=== PATIENT | male | born 1960 | race Caucasian/White ===

== ENCOUNTER → 2017-04-12 | Outpatient (CLI) | payer MEDICAID ==
[~2017-04-12] MED LIST: ALBU18HF INH; BUPR150T73 PO; CHOL500014 PO; GLYB2.5T2 PO; LISI-170 PO; NAPR220T29 PO; SERT100T PO; SIMV20TA3 PO; TRAZ100T15 PO
== END | disposition home or self-care (01) ==
LOC: RAD 16:16 → EDSTATUS 16:30
PROVIDERS: ATTEND Nurse Practitioner
DX: I51.7 Cardiomegaly (principal); J18.0 Bronchopneumonia, unspecified organism; J44.9 Chronic obstructive pulmonary disease, unspecified; K44.9 Diaphragmatic hernia without obstruction or gangrene; K80.20 Calculus of gallbladder without cholecystitis without obstruction
CPT/HCPCS: 71250

== ENCOUNTER 2018-04-07 09:13 | Inpatient (IN) | payer MEDICAID ==
[~2018-04-07] VITALS: Ht 188 cm; Wt 99.9 kg
[~2018-04-07 09:13] MED LIST changes: -CHOL500014 PO; +CHOL500045 PO; +NAPR-816 PO; -NAPR220T29 PO
[2018-04-07 10:28] LABS: BASOPHILS % (AUTO) 0 % (0-1); EOSINOPHILS # (AUTO) 0.14 x10^3/uL (0-0.4); EOSINOPHILS % (AUTO) 2 % (1-7); LYMPHOCYTES # (AUTO) 1.51 x10^3/uL (1-3.4); LYMPHOCYTES % (AUTO) 18 % (22-44); MD NO; MEAN CORPUSCULAR HEMOGLOBIN 30.4 pg (27.5-34.5); MEAN CORPUSCULAR HGB CONC 33.9 g/dL (33.2-36.2); MEAN CORPUSCULAR VOLUME 89.5 fL (81-97); MONOCYTES # (AUTO) 0.67 x10^3/uL (0.2-0.8); MONOCYTES % (AUTO) 8 % (2-9); NEUTROPHILS % (AUTO) 72 % (42-75); PLATELET COUNT 225 x10^3/uL (130-400); RED BLOOD COUNT 4.38 x10^6/uL (4.38-5.82); RED CELL DISTRIBUTION WIDTH 15.1 % (9.4-14.8)
[2018-04-07 10:29] LABS: HCT (SEDRATE) 39.2 % (39.2-51.8)
[2018-04-07] MEDS ORDERED: SODIUM CHLORIDE FLUSH 10ML SYR IVF ONE (10:30)
[2018-04-07] MEDS ORDERED: AMPICILLIN/SULBACTAM 3 GM in SODIUM CHLORIDE 0.9% 100 ML IVPB ONE (10:30)
[2018-04-07] MEDS ORDERED: VANCOMYCIN 2,000 MG in SODIUM CHLORIDE 0.9% 500 ML IV ONE (10:30)
[2018-04-07] MEDS ORDERED: VANCOMYCIN PER PHARMACY MC ONE (10:30)
[2018-04-07 10:41] LABS: ALANINE AMINOTRANSFERASE 21 U/L (12-78); ALBUMIN 2.7 g/dL (3.4-5.0); ANION GAP 10 mmol/L (5-15); CALCIUM 8.2 mg/dL (8.5-10.1); CHLORIDE 104 mmol/L (98-107); CREATININE 0.98 mg/dL (0.7-1.3)
[2018-04-07 10:43] LABS: ALKALINE PHOSPHATASE 85 U/L (45-117); BILIRUBIN,TOTAL 0.4 mg/dL (0.2-1.0); TOTAL PROTEIN 6.9 g/dL (6.4-8.2)
[2018-04-07] MEDS ORDERED: METFORMIN PO (10:49)
[2018-04-07] MEDS ORDERED: hydrALAzine 20 MG/ML, 1ML IVPush PRN (13:30)
[2018-04-07] MEDS ORDERED: POLYETHYLENE GLYCOL 17 GM PACKET PO PRN (13:30)
[2018-04-07] MEDS ORDERED: ACETAMINOPHEN 325 MG TABLET PO PRN (13:30)
[2018-04-07] MEDS ORDERED: DEXTROSE 4 GM TAB.CHEW PO PRN (13:30)
[2018-04-07] MEDS ORDERED: VANCOMYCIN PER PHARMACY MC PRN (13:30)
[2018-04-07] MEDS ORDERED: DEXTROSE 50%, 50ML SYRINGE IVPush PRN (13:30)
[2018-04-07] MEDS ORDERED: GLUCAGON 1 MG IM PRN (13:30)
[2018-04-07] MEDS: SODIUM CHLORIDE 0.9% 1,000 ML IV SCH ×2 (13:54→20:10)
[2018-04-07] MEDS ORDERED: PHARMACOKINETIC CONSULTATION MC ONE (14:00)
[2018-04-07] MEDS ORDERED: AMPICILLIN/SULBACTAM 3 GM in SODIUM CHLORIDE 0.9% 100 ML IV SCH (14:00)
[2018-04-07] MEDS ORDERED: PHARMACOKINETIC MONITORING MC PRN (14:00)
[2018-04-07 14:07] VITALS: BP 115/69
[2018-04-07 14:07] LABS: INTERNATIONAL NORMALIZED RATIO 0.9 (0.93-1.1); PROTHROMBIN TIME 9.4 Seconds (9.6-11.5)
[2018-04-07] MEDS: INSULIN LISPRO 100 UNITS/ML, PEN SQ-INSULIN SCH ×2 (16:00→20:10)
[2018-04-07] MEDS: HEPARIN 5,000 UNITS/ML, 1ML SQ SCH (16:24)
[2018-04-07] MEDS: PIPERACILLIN/TAZO/PMX 3.375GM 50 ML IV SCH (16:34)
[2018-04-07 16:56] LABS: MICROSCOPIC NOT IND
[2018-04-07 16:58] LABS: CULTURE INDICATED? NO
[2018-04-07 17:08] LABS: AMPHETAMINE SCREEN, URINE Negative (Negative); BARBITURATE SCREEN, URINE Negative (Negative); BENZODIAZEPINE SCREEN, URINE Negative (Negative); CANNABINOID SCREEN, URINE Negative (Negative); COCAINE SCREEN, URINE Negative (Negative); METHADONE SCREEN, URINE Negative (Negative); OPIATE SCREEN, URINE Negative (Negative)
[2018-04-07] MEDS: ATORVASTATIN 40 MG TABLET PO SCH (20:09)
[2018-04-07] MEDS: SODIUM CHLORIDE FLUSH 10ML SYR IVF SCH (20:10)
[2018-04-07 20:23] VITALS: BP 134/84
[2018-04-08] MEDS: PIPERACILLIN/TAZO/PMX 3.375GM 50 ML IV SCH ×3 (00:11→17:27)
[2018-04-08] MEDS: HEPARIN 5,000 UNITS/ML, 1ML SQ SCH ×3 (00:20→17:27)
[2018-04-08 00:36] VITALS: BP 119/69
[2018-04-08] MEDS: SODIUM CHLORIDE 0.9% 1,000 ML IV SCH ×4 (02:59→23:15)
[2018-04-08] MEDS: VANCOMYCIN 2,000 MG in SODIUM CHLORIDE 0.9% 500 ML IV SCH ×2 (04:49→23:11)
[2018-04-08 05:20] LABS: BASOPHILS # (AUTO) 0.03 x10^3/uL (0-0.1); BASOPHILS % (AUTO) 0 % (0-1); EOSINOPHILS % (AUTO) 3 % (1-7); LYMPHOCYTES # (AUTO) 2.02 x10^3/uL (1-3.4); LYMPHOCYTES % (AUTO) 32 % (22-44); MD NO; MEAN CORPUSCULAR HEMOGLOBIN 30.5 pg (27.5-34.5); MEAN CORPUSCULAR HGB CONC 33.8 g/dL (33.2-36.2); MEAN CORPUSCULAR VOLUME 90.3 fL (81-97); MEAN PLATELET VOLUME 8.8 fL (7.4-10.4); MONOCYTES # (AUTO) 0.56 x10^3/uL (0.2-0.8); MONOCYTES % (AUTO) 9 % (2-9); NEUTROPHILS # (AUTO) 3.47 x10^3/uL (1.8-6.8); NEUTROPHILS % (AUTO) 55 % (42-75); PLATELET COUNT 237 x10^3/uL (130-400); RED BLOOD COUNT 4.31 x10^6/uL (4.38-5.82); RED CELL DISTRIBUTION WIDTH 14.8 % (9.4-14.8)
[2018-04-08 05:25] LABS: ANION GAP 6 mmol/L (5-15); CALCIUM 8.9 mg/dL (8.5-10.1); CHLORIDE 109 mmol/L (98-107); CREATININE 0.74 mg/dL (0.7-1.3)
[2018-04-08 06:30] VITALS: BP 125/76
[2018-04-08] MEDS: LISINOPRIL 20 MG TABLET PO SCH (08:58)
[2018-04-08] MEDS: INSULIN LISPRO 100 UNITS/ML, PEN SQ-INSULIN SCH ×4 (08:59→21:00)
[2018-04-08] MEDS: INSULIN GLARGINE 100 UNITS/ML, PEN SQ-INSULIN SCH ×2 (08:59→21:26)
[2018-04-08] MEDS: SODIUM CHLORIDE FLUSH 10ML SYR IVF SCH ×2 (08:59→21:26)
[2018-04-08 13:19] VITALS: BP 106/67
[2018-04-08 19:20] VITALS: BP 106/63
[2018-04-08] MEDS: ATORVASTATIN 40 MG TABLET PO SCH (21:26)
[2018-04-09] MEDS: HEPARIN 5,000 UNITS/ML, 1ML SQ SCH ×3 (00:24→16:00)
[2018-04-09 01:12] VITALS: BP 117/75
[2018-04-09] MEDS: PIPERACILLIN/TAZO/PMX 3.375GM 50 ML IV SCH ×2 (01:21→08:40)
[2018-04-09 04:56] LABS: ANION GAP 5 mmol/L (5-15); CALCIUM 8.6 mg/dL (8.5-10.1); CHLORIDE 110 mmol/L (98-107)
[2018-04-09 05:06] LABS: CREATININE 0.77 mg/dL (0.7-1.3)
[2018-04-09 05:11] LABS: BASOPHILS # (AUTO) 0.05 x10^3/uL (0-0.1); BASOPHILS % (AUTO) 1 % (0-1); EOSINOPHILS % (AUTO) 2 % (1-7); LYMPHOCYTES # (AUTO) 2.44 x10^3/uL (1-3.4); LYMPHOCYTES % (AUTO) 30 % (22-44); MD NO; MEAN CORPUSCULAR HEMOGLOBIN 29.7 pg (27.5-34.5); MEAN CORPUSCULAR HGB CONC 33.2 g/dL (33.2-36.2); MEAN CORPUSCULAR VOLUME 89.4 fL (81-97); MEAN PLATELET VOLUME 8.5 fL (7.4-10.4); MONOCYTES # (AUTO) 0.68 x10^3/uL (0.2-0.8); MONOCYTES % (AUTO) 8 % (2-9); NEUTROPHILS # (AUTO) 4.78 x10^3/uL (1.8-6.8); NEUTROPHILS % (AUTO) 59 % (42-75); PLATELET COUNT 247 x10^3/uL (130-400); RED BLOOD COUNT 4.38 x10^6/uL (4.38-5.82); RED CELL DISTRIBUTION WIDTH 14.6 % (9.4-14.8)
[2018-04-09] MEDS ORDERED: POTASSIUM CHLORIDE 20 MEQ TAB.ER.PRT PO ONE (05:30)
[2018-04-09 05:51] LABS: HCT (SEDRATE) 39.2 % (39.2-51.8)
[2018-04-09 06:45] VITALS: BP 119/76
[2018-04-09] MEDS: LISINOPRIL 20 MG TABLET PO SCH (08:40)
[2018-04-09] MEDS: INSULIN LISPRO 100 UNITS/ML, PEN SQ-INSULIN SCH ×4 (08:41→20:25)
[2018-04-09] MEDS: SODIUM CHLORIDE FLUSH 10ML SYR IVF SCH ×2 (08:41→20:42)
[2018-04-09] MEDS: INSULIN GLARGINE 100 UNITS/ML, PEN SQ-INSULIN SCH ×2 (08:41→20:25)
[2018-04-09 12:55] VITALS: BP 123/70
[2018-04-09] MEDS: CLINDAMYCIN PMX 600MG/50ML 50 ML IV SCH (15:25)
[2018-04-09] MEDS: SODIUM CHLORIDE 0.9% 1,000 ML IV SCH (15:26)
[2018-04-09] MEDS: VANCOMYCIN 2,000 MG in SODIUM CHLORIDE 0.9% 500 ML IV SCH (17:23)
[2018-04-09 19:42] VITALS: BP 97/70
[2018-04-09] MEDS: ATORVASTATIN 40 MG TABLET PO SCH (20:24)
[2018-04-10] MEDS: CLINDAMYCIN PMX 600MG/50ML 50 ML IV SCH ×2 (00:01→07:53)
[2018-04-10] MEDS: SODIUM CHLORIDE 0.9% 1,000 ML IV SCH (00:01)
[2018-04-10] MEDS: HEPARIN 5,000 UNITS/ML, 1ML SQ SCH ×2 (00:01→07:53)
[2018-04-10 01:38] VITALS: BP 111/63
[2018-04-10 05:03] LABS: BASOPHILS # (AUTO) 0.04 x10^3/uL (0-0.1); BASOPHILS % (AUTO) 1 % (0-1); EOSINOPHILS # (AUTO) 0.18 x10^3/uL (0-0.4); EOSINOPHILS % (AUTO) 2 % (1-7); LYMPHOCYTES # (AUTO) 1.94 x10^3/uL (1-3.4); LYMPHOCYTES % (AUTO) 25 % (22-44); MD NO; MEAN CORPUSCULAR HEMOGLOBIN 29.8 pg (27.5-34.5); MEAN CORPUSCULAR HGB CONC 33.3 g/dL (33.2-36.2); MEAN CORPUSCULAR VOLUME 89.6 fL (81-97); MEAN PLATELET VOLUME 8.4 fL (7.4-10.4); MONOCYTES # (AUTO) 0.47 x10^3/uL (0.2-0.8); MONOCYTES % (AUTO) 6 % (2-9); NEUTROPHILS # (AUTO) 5.22 x10^3/uL (1.8-6.8); NEUTROPHILS % (AUTO) 67 % (42-75); PLATELET COUNT 263 x10^3/uL (130-400); RED BLOOD COUNT 4.76 x10^6/uL (4.38-5.82)
[2018-04-10 05:16] LABS: CHLORIDE 107 mmol/L (98-107)
[2018-04-10 05:20] LABS: ALBUMIN 2.7 g/dL (3.4-5.0); ANION GAP 6 mmol/L (5-15); CALCIUM 9.2 mg/dL (8.5-10.1)
[2018-04-10 07:47] VITALS: BP 139/84
[2018-04-10] MEDS: LISINOPRIL 20 MG TABLET PO SCH (07:54)
[2018-04-10] MEDS: INSULIN LISPRO 100 UNITS/ML, PEN SQ-INSULIN SCH ×2 (07:54→11:40)
[2018-04-10] MEDS: SODIUM CHLORIDE FLUSH 10ML SYR IVF SCH (07:55)
[2018-04-10] MEDS: INSULIN GLARGINE 100 UNITS/ML, PEN SQ-INSULIN SCH (07:55)
[2018-04-10] MEDS ORDERED: CLINDAMYCIN 300 MG CAPSULE PO SCH (10:00)
[2018-04-10] MEDS ORDERED: CLIN300C8 PO (12:07)
[2018-04-10 13:18] VITALS: BP 112/70
== END 2018-04-10 15:26 | disposition home or self-care (01) | DRG 602 ==
LOC: ED 10:41 → EDIP 10:42 → ED 10:57 → 3NE 12:12 → DCLOUNGE 04-10 15:21
PROVIDERS: ADMIT Hospitalist; ATTEND Internal Medicine
DX: L03.116 Cellulitis of left lower limb (principal); E43 Unspecified severe protein-calorie malnutrition; E11.65 Type 2 diabetes mellitus with hyperglycemia; D64.9 Anemia, unspecified; E78.5 Hyperlipidemia, unspecified; F12.90 Cannabis use, unspecified, uncomplicated; F17.210 Nicotine dependence, cigarettes, uncomplicated; I10 Essential (primary) hypertension; J44.9 Chronic obstructive pulmonary disease, unspecified; Z59.0 Homelessness; Z66 Do not resuscitate; Z82.49 Family history of ischemic heart disease and other diseases of the circulatory system; Z89.421 Acquired absence of other right toe(s); M79.89 Other specified soft tissue disorders; Z68.28 Body mass index [BMI] 28.0-28.9, adult
CPT/HCPCS: 36415; 80048; 80053; 80307; 81003; 82040; 82947; 82962; 83036; 85025; 85610; 85651; 86140; 87040; 87081; 96365; 99285; J0295; J1644; J2543; J3370; J1815; J7030; J7040

== ENCOUNTER 2020-11-18 23:57 | Emergency (ER) | payer MEDICAID ==
[~2020-11-18] VITALS: Ht 188 cm; Wt 103.6 kg
[~2020-11-18 23:57] MED LIST changes: +CLIN300C9 PO; +METFORMIN PO; +SIMV20TA19 PO; -SIMV20TA3 PO; +TRAZ-175 PO; -TRAZ100T15 PO
[2020-11-19 00:53] LABS: PH, VENOUS 7.356 pH (7.320-7.420)
[2020-11-19 00:54] LABS: BASOPHILS % (AUTO) 1 % (0-1); EOSINOPHILS % (AUTO) 2 % (1-7); LYMPHOCYTES % (AUTO) 18 % (22-44); MEAN CORPUSCULAR HEMOGLOBIN 28.6 pg (27.5-34.5); MEAN CORPUSCULAR HGB CONC 32.7 g/dL (33.2-36.2); MEAN PLATELET VOLUME 8.5 fL (7.4-10.4); MONOCYTES % (AUTO) 11 % (2-9); NEUTROPHILS % (AUTO) 68 % (42-75); PLATELET COUNT 264 x10^3/uL (130-400); RED BLOOD COUNT 4.56 x10^6/uL (4.38-5.82); RED CELL DISTRIBUTION WIDTH 16.4 % (9.4-14.8)
[2020-11-19 00:55] LABS: ANISOCYTOSIS 1+; MD MORPH REVIEW ONLY
[2020-11-19 00:56] LABS: <PLATELET ESTIMATE> ADEQUATE; <PLT MORPHOLOGY> NORMAL PLT MORPH
[2020-11-19] MEDS ORDERED: VANCOMYCIN PER PHARMACY MC PRN (01:00)
[2020-11-19] MEDS ORDERED: VANCOMYCIN 2,500 MG in SODIUM CHLORIDE 0.9% 500 ML IV ONE (01:00)
[2020-11-19] MEDS ORDERED: SODIUM CHLORIDE 0.9% 1,000ML IVBOLUS ONE (01:00)
[2020-11-19] MEDS ORDERED: DIPHENHYDRAMINE 50 MG/ML, 1ML IVPush ONE (01:00)
[2020-11-19 01:08] LABS: ALANINE AMINOTRANSFERASE 23 U/L (12-78); ANION GAP 5 mmol/L (5-15); CHLORIDE 108 mmol/L (98-107)
[2020-11-19] MEDS ORDERED: DIPHENHYDRAMINE 50 MG/ML, 1ML ONE (01:21)
[2020-11-19 01:38] LABS: ALBUMIN 3.2 g/dL (3.4-5.0); ALKALINE PHOSPHATASE 65 U/L (45-117); BILIRUBIN,TOTAL 0.2 mg/dL (0.2-1.0); CALCIUM 8.7 mg/dL (8.5-10.1); CREATININE 1.04 mg/dL (0.7-1.3)
--- NOTE | 2020-11-19 01:57 | NUR ---
REPORT RECEIVED FROM RANDOLPH GARDINER
[2020-11-19 02:00] LABS: ACETONE, SERUM Negative (Negative)
--- NOTE | 2020-11-19 02:01 | NUR ---
PT RESTING IN GURNEY. VANCOMYCIN INFUSING THROUGH IV. PT VERBALIZED UNDERSTANING OF POC AND STATES "WAKE ME UP WHEN ITS TIME TO GO". PT GIVEN WARM BLANKET
[2020-11-19 03:57] VITALS: BP 155/105
== END 2020-11-19 03:59 | disposition home or self-care (01) ==
LOC: ED 11-19 00:25
DX: M86.672 Other chronic osteomyelitis, left ankle and foot (principal); E11.65 Type 2 diabetes mellitus with hyperglycemia; J43.9 Emphysema, unspecified; I10 Essential (primary) hypertension
CPT/HCPCS: 36415; 80053; 82010; 82803; 83605; 85025; 87040; 96365; 96366; 96375; 99284; J1200; J3370; J7030; J7040

== ENCOUNTER 2021-01-28 01:26 | Inpatient (IN) | payer MEDICAID ==
[~2021-01-28] VITALS: Ht 188 cm; Wt 105.8 kg
[~2021-01-28 01:26] MED LIST changes: +Albuterol-Ipratropium Mdi INH; +DULO30CA2 PO; +LISI5TAB7 PO; +METF850T PO; +PRAM0.5T5 PO
--- NOTE | 2021-01-28 02:03 | NUR ---
BREAK RN: PT AMBULATED TO ROOM WITH CANE. PT IN NAD. WAITING FOR ERP TO EVALUATE
[2021-01-28] MEDS ORDERED: VANCOMYCIN 2,500 MG in SODIUM CHLORIDE 0.9% 500 ML IV ONE (02:30)
[2021-01-28] MEDS ORDERED: VANCOMYCIN PER PHARMACY MC ONE (02:30)
[2021-01-28] MEDS ORDERED: PIPERACILLIN/TAZO/PMX 3.375GM 50 ML IVPB ONE (02:30)
[2021-01-28 02:36] LABS: BASOPHILS % (AUTO) 1 % (0-1); EOSINOPHILS % (AUTO) 0 % (1-7); LYMPHOCYTES % (AUTO) 12 % (22-44); MEAN CORPUSCULAR HEMOGLOBIN 29.2 pg (27.5-34.5); MEAN CORPUSCULAR HGB CONC 34.2 g/dL (33.2-36.2); MEAN PLATELET VOLUME 9.2 fL (7.4-10.4); MONOCYTES % (AUTO) 11 % (2-9); NEUTROPHILS % (AUTO) 77 % (42-75); PLATELET COUNT 187 x10^3/uL (130-400); RED BLOOD COUNT 4.77 x10^6/uL (4.38-5.82); RED CELL DISTRIBUTION WIDTH 15.2 % (9.4-14.8)
[2021-01-28 02:38] LABS: MD NO
[2021-01-28] MEDS ORDERED: PIPERACILLIN/TAZO/PMX 3.375GM 50 ML ONE (02:39)
[2021-01-28 02:49] LABS: ALANINE AMINOTRANSFERASE 18 U/L (12-78); ANION GAP 8 mmol/L (5-15); CALCIUM 8.9 mg/dL (8.5-10.1); CHLORIDE 96 mmol/L (98-107)
[2021-01-28 02:51] LABS: ALKALINE PHOSPHATASE 87 U/L (45-117); BILIRUBIN,TOTAL 0.5 mg/dL (0.2-1.0); CREATININE 1.37 mg/dL (0.7-1.3); TOTAL PROTEIN 7.5 g/dL (6.4-8.2)
--- NOTE | 2021-01-28 02:54 | NUR ---
abx hung after blood cultures
[2021-01-28] MEDS ORDERED: SODIUM CHLORIDE 0.9% 1,000ML IVBOLUS ONE (03:00)
--- NOTE | 2021-01-28 03:17 | NUR ---
BLOOD SUGAR OF [id number] REPORTED TO PROVIDER. PT STARTED ON LITER BOLUS
[2021-01-28] MEDS ORDERED: INSULIN SINGLE DOSE, ER IVPush ONE (04:00)
[2021-01-28] MEDS ORDERED: INSULIN LISPRO 100 UNITS/ML, PEN ONE (04:03)
[2021-01-28] MEDS ORDERED: METF500T17 PO (04:12)
--- NOTE | 2021-01-28 04:12 | NUR ---
pt medicated with 5 units iv insulin. will reassess bs
[2021-01-28] MEDS ORDERED: INSULIN REGULAR 100 UNITS/ML, 3ML VIAL IVPush ONE (04:30)
--- NOTE | 2021-01-28 05:10 | NUR ---
hosp at bedside
[2021-01-28 05:30] VITALS: BP 117/72
[2021-01-28] MEDS ORDERED: ONDANSETRON 2MG/ML, 2ML IVPush PRN (06:00)
[2021-01-28] MEDS: SODIUM CHLORIDE 0.9% 1,000 ML IV SCH ×2 (06:00→16:54)
[2021-01-28] MEDS ORDERED: DOCUSATE 100 MG CAPSULE PO PRN (06:00)
[2021-01-28] MEDS ORDERED: PROMETHAZINE 25 MG/ML, 1ML IM PRN (06:00)
[2021-01-28] MEDS ORDERED: ALBUTEROL HFA 90 MCG/SPRAY INH PRN (06:00)
[2021-01-28] MEDS ORDERED: hydrALAzine 20 MG/ML, 1ML IVPush PRN (06:00)
[2021-01-28] MEDS ORDERED: VANCOMYCIN PER PHARMACY MC PRN (06:00)
[2021-01-28] MEDS ORDERED: ACETAMINOPHEN 325 MG TABLET PO PRN (06:00)
[2021-01-28] MEDS ORDERED: BISACODYL 10 MG SUPP PR PRN (06:00)
[2021-01-28] MEDS ORDERED: POLYETHYLENE GLYCOL 17 GM PACKET PO PRN (06:00)
[2021-01-28] MEDS ORDERED: PHARMACOKINETIC MONITORING MC PRN (06:00)
[2021-01-28] MEDS ORDERED: ONDANSETRON ODT 4 MG PO PRN (06:00)
[2021-01-28] MEDS: OXYcodone IR 5MG TABLET PO PRN ×2 (06:03→19:53)
[2021-01-28] MEDS: ENOXAPARIN 40 MG/0.4 ML SQ SCH (06:37)
[2021-01-28 06:47] LABS: HCT (SEDRATE) 38.9 % (39.2-51.8)
[2021-01-28] MEDS: INSULIN LISPRO 100 UNITS/ML, PEN SQ-INSULIN SCH ×4 (07:00→20:40)
[2021-01-28 07:06] LABS: FREE T4 (FREE THYROXINE) 1.32 ng/dL (0.76-1.46)
[2021-01-28] MEDS: DULOXETINE 30 MG CAPSULE.DR PO SCH (07:14)
[2021-01-28] MEDS: ERTAPENEM 1 GM in SODIUM CHLORIDE 0.9% 50 ML IV SCH (07:28)
[2021-01-28] MEDS: INSULIN GLARGINE 100 UNITS/ML, PEN SQ-INSULIN SCH (07:29)
[2021-01-28 08:01] VITALS: BP 138/79
[2021-01-28 12:30] VITALS: BP 128/71
[2021-01-28] MEDS ORDERED: GADOTERATE 10 MMOL/20ML SYR ONE (16:33)
[2021-01-28] MEDS: VANCOMYCIN 2,000 MG in SODIUM CHLORIDE 0.9% 500 ML IV SCH (16:53)
[2021-01-28 18:47] VITALS: BP 123/75
[2021-01-28] MEDS: PRAMIPEXOLE 0.5MG TABLET PO SCH (19:53)
[2021-01-29 00:55] VITALS: BP 110/72
[2021-01-29] MEDS: VANCOMYCIN 2,000 MG in SODIUM CHLORIDE 0.9% 500 ML IV SCH ×2 (05:09→17:12)
[2021-01-29] MEDS: ENOXAPARIN 40 MG/0.4 ML SQ SCH (05:10)
[2021-01-29 05:48] LABS: BASOPHILS % (AUTO) 0 % (0-1); EOSINOPHILS % (AUTO) 2 % (1-7); LYMPHOCYTES % (AUTO) 16 % (22-44); MEAN CORPUSCULAR HEMOGLOBIN 29.4 pg (27.5-34.5); MEAN CORPUSCULAR HGB CONC 34.5 g/dL (33.2-36.2); MEAN PLATELET VOLUME 8.7 fL (7.4-10.4); MONOCYTES % (AUTO) 10 % (2-9); NEUTROPHILS % (AUTO) 71 % (42-75); PLATELET COUNT 184 x10^3/uL (130-400); RED BLOOD COUNT 4.42 x10^6/uL (4.38-5.82)
[2021-01-29 05:51] LABS: MD NO
[2021-01-29 05:51] LABS: CHLORIDE 106 mmol/L (98-107)
[2021-01-29 06:09] LABS: ALANINE AMINOTRANSFERASE 15 U/L (12-78); ALBUMIN 2.2 g/dL (3.4-5.0); ALKALINE PHOSPHATASE 71 U/L (45-117); ANION GAP 6 mmol/L (5-15); BILIRUBIN,TOTAL 0.3 mg/dL (0.2-1.0); CALCIUM 8.1 mg/dL (8.5-10.1); CREATININE 0.77 mg/dL (0.7-1.3); TOTAL PROTEIN 5.9 g/dL (6.4-8.2)
[2021-01-29] MEDS ORDERED: INSULIN SINGLE DOSE, ER ONE (07:05)
[2021-01-29 07:59] VITALS: BP 131/78
[2021-01-29] MEDS ORDERED: OXYcodone 5 MG/5 ML ORAL.SOL UDC ONE (08:03)
[2021-01-29] MEDS: INSULIN LISPRO 100 UNITS/ML, PEN SQ-INSULIN SCH ×4 (08:09→20:44)
[2021-01-29] MEDS: INSULIN GLARGINE 100 UNITS/ML, PEN SQ-INSULIN SCH (08:10)
[2021-01-29] MEDS: ERTAPENEM 1 GM in SODIUM CHLORIDE 0.9% 50 ML IV SCH (08:10)
[2021-01-29] MEDS: DULOXETINE 30 MG CAPSULE.DR PO SCH (08:10)
[2021-01-29] MEDS: OXYcodone IR 5MG TABLET PO PRN ×2 (08:11→13:42)
[2021-01-29 13:49] VITALS: BP 127/75
[2021-01-29 18:52] VITALS: BP 133/81
[2021-01-29] MEDS: PRAMIPEXOLE 0.5MG TABLET PO SCH (20:32)
[2021-01-30 00:11] VITALS: BP 133/76
[2021-01-30] MEDS: VANCOMYCIN 2,000 MG in SODIUM CHLORIDE 0.9% 500 ML IV SCH (06:12)
[2021-01-30] MEDS: ENOXAPARIN 40 MG/0.4 ML SQ SCH (06:13)
[2021-01-30] MEDS: OXYcodone IR 5MG TABLET PO PRN ×3 (06:15→15:08)
[2021-01-30] MEDS: INSULIN LISPRO 100 UNITS/ML, PEN SQ-INSULIN SCH ×4 (08:11→20:56)
[2021-01-30] MEDS: INSULIN GLARGINE 100 UNITS/ML, PEN SQ-INSULIN SCH (08:11)
[2021-01-30] MEDS: ERTAPENEM 1 GM in SODIUM CHLORIDE 0.9% 50 ML IV SCH (08:12)
[2021-01-30] MEDS: DULOXETINE 30 MG CAPSULE.DR PO SCH (08:12)
[2021-01-30 08:59] VITALS: BP 138/76
[2021-01-30] MEDS: PIPERACILLIN/TAZO/PMX 3.375GM 50 ML IV SCH ×2 (12:11→19:15)
[2021-01-30 12:59] VITALS: BP 130/73
[2021-01-30 19:18] VITALS: BP 143/75
[2021-01-30] MEDS ORDERED: NICOTINE 21 MG/24 HR PATCH.TD24 TD ONE (20:00)
[2021-01-30] MEDS: DOXEPIN 10 MG CAPSULE PO SCH (20:16)
[2021-01-30] MEDS: PRAMIPEXOLE 0.5MG TABLET PO SCH (20:16)
[2021-01-31] MEDS: PIPERACILLIN/TAZO/PMX 3.375GM 50 ML IV SCH ×3 (02:54→18:33)
[2021-01-31 02:55] VITALS: BP 135/81
[2021-01-31] MEDS: ENOXAPARIN 40 MG/0.4 ML SQ SCH (06:12)
[2021-01-31 06:57] VITALS: BP 126/76
[2021-01-31] MEDS: ESCITALOPRAM 10MG TABLET PO SCH (08:26)
[2021-01-31] MEDS: OXYcodone IR 5MG TABLET PO PRN ×2 (08:26→20:52)
[2021-01-31] MEDS: INSULIN GLARGINE 100 UNITS/ML, PEN SQ-INSULIN SCH (08:26)
[2021-01-31] MEDS: INSULIN LISPRO 100 UNITS/ML, PEN SQ-INSULIN SCH ×4 (08:27→19:39)
[2021-01-31 13:52] VITALS: BP 137/80
[2021-01-31 19:12] VITALS: BP 126/80
[2021-01-31] MEDS ORDERED: NICOTINE 21 MG/24 HR PATCH.TD24 TD SCH (20:00)
[2021-01-31] MEDS: DOXEPIN 10 MG CAPSULE PO SCH (20:51)
[2021-01-31] MEDS: PRAMIPEXOLE 0.5MG TABLET PO SCH (20:52)
[2021-02-01 01:07] VITALS: BP 107/64
[2021-02-01] MEDS: PIPERACILLIN/TAZO/PMX 3.375GM 50 ML IV SCH ×2 (03:34→11:10)
[2021-02-01] MEDS: ENOXAPARIN 40 MG/0.4 ML SQ SCH (06:08)
[2021-02-01] MEDS: INSULIN LISPRO 100 UNITS/ML, PEN SQ-INSULIN SCH ×2 (08:09→11:47)
[2021-02-01] MEDS: INSULIN GLARGINE 100 UNITS/ML, PEN SQ-INSULIN SCH (08:10)
[2021-02-01] MEDS: ESCITALOPRAM 10MG TABLET PO SCH (08:10)
[2021-02-01 08:20] VITALS: BP 134/86
[2021-02-01] MEDS ORDERED: INSULIN LISPRO 100 UNITS/ML, PEN SQ-INSULIN SCH (12:00)
[2021-02-01 13:35] VITALS: BP 128/74
== END 2021-02-01 16:27 | disposition left against medical advice (07) | DRG 197 ==
LOC: ED 03:11 → EDIP 03:59 → 3N 05:25
PROVIDERS: ADMIT Internal Medicine; ATTEND Hospitalist
DX: E11.52 Type 2 diabetes mellitus with diabetic peripheral angiopathy with gangrene (principal); L03.116 Cellulitis of left lower limb; N17.0 Acute kidney failure with tubular necrosis; I10 Essential (primary) hypertension; E78.5 Hyperlipidemia, unspecified; J44.9 Chronic obstructive pulmonary disease, unspecified; E11.65 Type 2 diabetes mellitus with hyperglycemia; F33.1 Major depressive disorder, recurrent, moderate; B96.1 Klebsiella pneumoniae [K. pneumoniae] as the cause of diseases classified elsewhere; B95.7 Other staphylococcus as the cause of diseases classified elsewhere; B96.89 Other specified bacterial agents as the cause of diseases classified elsewhere; F41.9 Anxiety disorder, unspecified; E11.40 Type 2 diabetes mellitus with diabetic neuropathy, unspecified; Z53.29 Procedure and treatment not carried out because of patient's decision for other reasons; F17.210 Nicotine dependence, cigarettes, uncomplicated; Z89.422 Acquired absence of other left toe(s); Z91.14 Patient's other noncompliance with medication regimen; Z89.412 Acquired absence of left great toe; Z71.6 Tobacco abuse counseling; Z59.0 Homelessness; Z91.5 Personal history of self-harm; Z79.899 Other long term (current) drug therapy; Z88.8 Allergy status to other drugs, medicaments and biological substances
CPT/HCPCS: 36415; 80053; 80202; 82962; 83036; 83605; 83735; 84100; 84145; 84439; 84443; 85025; 85651; 86140; 87040; 87070; 87077; 87186; 87205; 96365; 96366; G0378; J1335; J1650; J1815; J2543; J3370; A9575; J7030; J7040